=== PATIENT | male | born 1975 | race Caucasian/White ===

== ENCOUNTER 2017-09-12 11:31 | Emergency (ER) | payer MEDICAID | END 2017-09-12 21:40 | disposition home or self-care (01) | LOC: E/R 11:31 | DX: S91.202A Unspecified open wound of left great toe with damage to nail, initial encounter (principal); E11.9 Type 2 diabetes mellitus without complications; X58.XXXA Exposure to other specified factors, initial encounter; Y92.9 Unspecified place or not applicable | CPT/HCPCS: 99283; Z7502 ==

== ENCOUNTER 2017-10-10 19:37 | Emergency (ER) | payer MEDICAID ==
[2017-10-10] MEDS: CLINDAMYCIN 300 MG CAP PO (21:46)
== END 2017-10-10 22:56 | disposition home or self-care (01) ==
LOC: FTE 19:37
DX: L03.032 Cellulitis of left toe (principal); E11.9 Type 2 diabetes mellitus without complications
CPT/HCPCS: 73660; 99283-25

== ENCOUNTER 2018-02-25 12:29 | Emergency (ER) | payer SELFPAY, MEDICAID | END 2018-02-25 13:56 | disposition home or self-care (01) | LOC: FTE 12:29 | DX: H66.92 Otitis media, unspecified, left ear (principal); E11.9 Type 2 diabetes mellitus without complications; F17.210 Nicotine dependence, cigarettes, uncomplicated | CPT/HCPCS: 99283 ==